=== PATIENT | male | born 1980 | race Two or more races ===

== ENCOUNTER 2018-06-05 09:06 | Outpatient (CLI) | payer OTHER ==
[~2018-06-05 09:06] MED LIST: KETO10TA2 PO
== END 2018-06-05 09:07 | disposition home or self-care (01) ==
LOC: LAB 09:06
DX: Z00.00 Encounter for general adult medical examination without abnormal findings (principal); Z11.3 Encounter for screening for infections with a predominantly sexual mode of transmission; Z13.220 Encounter for screening for lipoid disorders; Z13.89 Encounter for screening for other disorder

== ENCOUNTER → 2019-05-13 | Outpatient (CLI) | payer OTHER | END | disposition home or self-care (01) | LOC: RAD 13:52 | DX: M54.5 Low back pain (principal) ==

== ENCOUNTER 2021-02-16 09:33 | Emergency (ER) | payer OTHER ==
[~2021-02-16] VITALS: Ht 175.3 cm; Wt 104.3 kg
== END 2021-02-16 11:01 | disposition home or self-care (01) ==
LOC: ER 09:33
DX: S30.850A Superficial foreign body of lower back and pelvis, initial encounter (principal); W45.0XXA Nail entering through skin, initial encounter; Y93.89 Activity, other specified; Y92.098 Other place in other non-institutional residence as the place of occurrence of the external cause; Y99.8 Other external cause status

== ENCOUNTER 2021-11-20 21:20 | Emergency (ER) | payer OTHER ==
[~2021-11-20] VITALS: Ht 175.3 cm; Wt 104.3 kg
[2021-11-21] MEDS ORDERED: DOLOGESIC-DF 51 EACH PO (02:22)
== END 2021-11-21 02:57 | disposition home or self-care (01) ==
LOC: ER 21:20
DX: B34.9 Viral infection, unspecified (principal); Z11.52 Encounter for screening for COVID-19

== ENCOUNTER 2022-01-17 06:52 | Outpatient (CLI) | payer OTHER ==
[~2022-01-17 06:52] MED LIST changes: +DOLOGESIC-DF 51 EACH PO
== END 2022-01-17 07:08 | disposition home or self-care (01) ==
LOC: LAB 06:52
DX: E03.9 Hypothyroidism, unspecified (principal); E55.9 Vitamin D deficiency, unspecified; R05.9 Cough, unspecified; Z11.3 Encounter for screening for infections with a predominantly sexual mode of transmission; Z11.4 Encounter for screening for human immunodeficiency virus [HIV]; Z12.5 Encounter for screening for malignant neoplasm of prostate; Z12.11 Encounter for screening for malignant neoplasm of colon; Z12.2 Encounter for screening for malignant neoplasm of respiratory organs; Z13.0 Encounter for screening for diseases of the blood and blood-forming organs and certain disorders involving the immune mechanism; Z13.1 Encounter for screening for diabetes mellitus; Z13.89 Encounter for screening for other disorder; Z13.21 Encounter for screening for nutritional disorder; Z13.31 Encounter for screening for depression; Z13.9 Encounter for screening, unspecified; Z13.220 Encounter for screening for lipoid disorders; Z13.29 Encounter for screening for other suspected endocrine disorder; R73.09 Other abnormal glucose

== ENCOUNTER → 2023-09-23 07:53 | Outpatient (CLI) | payer OTHER ==
[2023-09-23 09:03] LABS: HEMATOCRIT 44.2 % (39.0-48.0); MEAN CELL VOLUME 83.5 fL (80.0-100.00); MEAN CORPUSCULAR HEMOGLOBIN 28.3 pg (27.00-32.0); MEAN CORPUSCULAR HGB CONC 33.9 g/dl (32.0-36.0); PLATELET COUNT 172 K/uL (150-450); RED CELL DISTRIBUTION WIDTH 13.2 % (11.5-14.5)
[2023-09-23 09:10] LABS: ERYTHROCYTE SEDIMENTATION RATE 10 mm/hr
[2023-09-23 11:10] LABS: PLATELET ESTIMATE NORMAL (NORMAL)
== END | disposition home or self-care (01) ==
LOC: LAB 07:53
PROVIDERS: ATTEND Internal Medicine Hematology & Oncology
DX: D70.8 Other neutropenia (principal); D80.8 Other immunodeficiencies with predominantly antibody defects; D80.4 Selective deficiency of immunoglobulin M [IgM]; M32.8 Other forms of systemic lupus erythematosus; M05.80 Other rheumatoid arthritis with rheumatoid factor of unspecified site

== ENCOUNTER 2023-10-09 06:23 | Outpatient (CLI) | payer OTHER | END 2023-10-09 06:25 | disposition home or self-care (01) | LOC: LAB 06:23 | PROVIDERS: ATTEND Internal Medicine Hematology & Oncology | DX: D47.2 Monoclonal gammopathy (principal); C90.00 Multiple myeloma not having achieved remission; Z91.013 Allergy to seafood; Z91.018 Allergy to other foods ==

== ENCOUNTER 2023-12-03 13:40 | Outpatient (CLI) | payer OTHER ==
[2023-12-03 14:43] LABS: HEMOGLOBIN 14.9 g/dL (13-16.00); MEAN CELL VOLUME 82.2 fL (80.0-100.00); MEAN CORPUSCULAR HEMOGLOBIN 28.5 pg (27.00-32.0); MEAN CORPUSCULAR HGB CONC 34.7 g/dl (32.0-36.0); PLATELET COUNT 179 K/uL (150-450); RED BLOOD COUNT 5.23 M/uL (4.00-6.00); RED CELL DISTRIBUTION WIDTH 13.2 % (11.5-14.5)
== END 2023-12-03 13:41 | disposition home or self-care (01) ==
LOC: LAB 13:40
PROVIDERS: ATTEND Internal Medicine Hematology & Oncology
DX: D70.8 Other neutropenia (principal); D80.9 Immunodeficiency with predominantly antibody defects, unspecified; Z91.013 Allergy to seafood; Z91.018 Allergy to other foods

== ENCOUNTER 2024-02-17 07:00 | Outpatient (CLI) | payer OTHER ==
[2024-02-17 07:54] LABS: HEMATOCRIT 44.4 % (39.0-48.0); HEMOGLOBIN 15.3 g/dL (13-16.00); MEAN CELL VOLUME 83.9 fL (80.0-100.00); MEAN CORPUSCULAR HEMOGLOBIN 28.9 pg (27.00-32.0); MEAN CORPUSCULAR HGB CONC 34.4 g/dl (32.0-36.0); PLATELET COUNT 170 K/uL (150-450); RED BLOOD COUNT 5.29 M/uL (4.00-6.00); RED CELL DISTRIBUTION WIDTH 13.2 % (11.5-14.5)
== END 2024-02-17 07:07 | disposition home or self-care (01) ==
LOC: LAB 07:00
PROVIDERS: ATTEND Internal Medicine Hematology & Oncology
DX: D70.8 Other neutropenia (principal); D80.9 Immunodeficiency with predominantly antibody defects, unspecified

== ENCOUNTER → 2025-04-14 | Emergency (ER) | payer OTHER ==
[~2025-04-14] VITALS: Ht 175.3 cm; Wt 104.3 kg
[~2025-04-14] MED LIST changes: +DIPHTH,PERTUSS(ACELL),TET VAC 0.5 ML SYRINGE IM ONE; +KETOROLAC TROMETHAMINE 30 MG VIAL IM ONE; +KETOROLAC TROMETHAMINE 30 MG VIAL ONE; +SULFAMETHOXAZOLE/TRIMETHOPRIM DS 1 TAB PO ONE; +TETANUS & DIPHTHERIA TOX,ADULT 0.5 ML VIAL IM ONE
[2025-04-14 15:37] VITALS: BP 120/75; O2SAT 100
== END | disposition home or self-care (01) ==
LOC: ER 15:02
DX: T24.211A Burn of second degree of right thigh, initial encounter (principal); V29.99XA Rider (driver) (passenger) of other motorcycle injured in unspecified traffic accident, initial encounter; Y93.89 Activity, other specified; Y92.89 Other specified places as the place of occurrence of the external cause; Y99.9 Unspecified external cause status; Z87.09 Personal history of other diseases of the respiratory system; Z91.013 Allergy to seafood

== ENCOUNTER 2025-08-14 11:51 | Emergency (ER) | payer OTHER ==
[~2025-08-14] VITALS: Ht 172.7 cm; Wt 90.7 kg
[~2025-08-14 11:51] MED LIST changes: -DIPHTH,PERTUSS(ACELL),TET VAC 0.5 ML SYRINGE IM ONE; -KETOROLAC TROMETHAMINE 30 MG VIAL IM ONE; -KETOROLAC TROMETHAMINE 30 MG VIAL ONE; -SULFAMETHOXAZOLE/TRIMETHOPRIM DS 1 TAB PO ONE; -TETANUS & DIPHTHERIA TOX,ADULT 0.5 ML VIAL IM ONE
[2025-08-14 15:18] LABS: URINE APPEARANCE Clear; URINE BILIRRUBIN Negative (NEGATIVE); URINE BLOOD Negative; URINE COLOR Dark Yellow; URINE GLUCOSE Negative (NEGATIVE); URINE KETONE Negative (NEGATIVE); URINE LEUKOCYTE Negative; URINE NITRATE Negative; URINE PROTEIN Trace (NEGATIVE); URINE UROBILINOGEN 0.2 E.U./dl
[2025-08-14 15:22] LABS: URINE BACTERIA 9.6 uL (0.0-1933); URINE EPITHELIAL CELLS 3.3 uL (0.0-38.8); URINE WBC 2.3 uL (0.0-23.2)
[2025-08-14 15:45] LABS: URINE CAST 0.00 uL (0.0-1.40); URINE RBC 1.0 uL (0.0-20.8)
[2025-08-14] MEDS ORDERED: MAGNESIUM HYDROXIDE 30 ML BLIST.PACK PO STA (16:57)
[2025-08-14] MEDS ORDERED: MINERAL OIL 30 ML BLIST.PACK PO STA (16:57)
[2025-08-14] MEDS ORDERED: LACTULOSE 20 G/30 ML BLIST.PACK PO STA (16:58)
[2025-08-14] MEDS ORDERED: KETOROLAC TROMETHAMINE 30 MG VIAL IM STA (16:58)
== END 2025-08-14 17:39 | disposition home or self-care (01) ==
LOC: ER 11:51
PROVIDERS: General Practice
DX: G89.11 Acute pain due to trauma (principal); R07.89 Other chest pain; R10.9 Unspecified abdominal pain; Z91.013 Allergy to seafood